=== PATIENT | female | born 1990 | race Caucasian/White ===

== ENCOUNTER → 2023-05-09 10:40 | Outpatient (CLI) | payer BC, SELFPAY ==
[2023-05-09 11:44] LABS: Add Manual Diff / Slide Review NO; Basophils Absolute Auto 0 /uL (0-100); Basophils Percent Auto 0.5 % (0-2); Eosinophils Absolute Auto 200 /uL (0-450); Eosinophils Percent Auto 3.1 % (2-4); Hematocrit 43.7 % (36-46); Hemoglobin 14.9 g/dL (12.0-16.0); Lymphocytes Absolute Auto 1700 /uL (1100-4500); Lymphocytes Percent Auto 31.4 % (25-40); Mean Corpuscular HGB Conc 34.2 % (30-36); Mean Corpuscular Hemoglobin 32.4 PG (26-34); Monocytes Absolute Auto 400 /uL (0-900); Neutrophils Absolute Auto 3100 /uL (1500-7000); Platelet Count 253 X10^3/uL (150-400); Red Blood Cell Count 4.61 X10^6/uL (4.0-5.2); Red Cell Distribution Width 12.8 % (11.6-14.8); White Blood Cell Count 5.4 X10^3/uL (4.5-11.0)
[2023-05-09 12:15] LABS: Alanine Aminotransferase 20 IU/L (<35); Albumin 4.5 g/dL (3.5-5.0); Albumin Globulin Ratio 1.5 (1.0-2.8); Alkaline Phosphatase 40 U/L (38-126); Aspartate Aminotransferase 25 IU/L (14-36); BUN Creatinine Ratio 13.9 (6-22); Bilirubin Total 0.8 mg/dL (0.2-1.3); Blood Urea Nitrogen 11 mg/dL (7-17); Calcium 9.4 mg/dL (8.4-10.2); Carbon Dioxide 21 mmol/L (22-32); Chloride 106 mmol/L (98-107); Estimated Glomerular Filt Rate > 60 mL/min (>60); Globulin 3.1 g/dL (1.7-4.1); Glucose 93 mg/dL (70-100); HEMOLYSIS < 15 (0-50); Potassium 3.8 mmol/L (3.4-5.1); Sodium 136 mmol/L (137-145); Total Protein 7.6 g/dL (6.3-8.2)
== END ==
PROVIDERS: PCP Family Medicine; Referring Provider Family Medicine; Visit Provider Family Medicine
DX: F41.9 Anxiety disorder, unspecified (principal); T78.40XA Allergy, unspecified, initial encounter; G43.909 Migraine, unspecified, not intractable, without status migrainosus
CPT/HCPCS: 36415; 80053; 85025

== ENCOUNTER → 2024-04-16 09:50 | Outpatient (CLI) | payer BC, SELFPAY | LOC: CAR 09:54 | PROVIDERS: PCP Family Medicine; Referring Provider Family Medicine; Visit Provider Family Medicine | DX: R00.1 Bradycardia, unspecified (principal) | CPT/HCPCS: 93246 ==

== ENCOUNTER → 2024-04-23 10:03 | Outpatient (CLI) | payer BC, SELFPAY ==
[2024-04-23 11:00] LABS: Add Manual Diff / Slide Review NO; Basophils Absolute Auto 0 /uL (0-100); Basophils Percent Auto 0.6 % (0-2); Eosinophils Absolute Auto 300 /uL (0-450); Eosinophils Percent Auto 6.5 % (2-4); Hematocrit 43.3 % (36-46); Hemoglobin 14.7 g/dL (12.0-16.0); Lymphocytes Absolute Auto 1700 /uL (1100-4500); Lymphocytes Percent Auto 33.8 % (25-40); Mean Corpuscular HGB Conc 33.9 % (30-36); Mean Corpuscular Hemoglobin 32.4 PG (26-34); Mean Corpuscular Volume 95.4 fL (80-100); Monocytes Absolute Auto 400 /uL (0-900); Monocytes Percent Auto 7.9 % (3-14); Neutrophils Absolute Auto 2600 /uL (1500-7000); Neutrophils Percent Auto 51.2 % (50-75); Platelet Count 288 X10^3/uL (150-400); Red Blood Cell Count 4.54 X10^6/uL (4.0-5.2); Red Cell Distribution Width 12.9 % (11.6-14.8)
[2024-04-23 11:20] LABS: HEMOLYSIS < 15 (0-50); Iron 122 ug/dL (37-170)
[2024-04-23 11:24] LABS: Alanine Aminotransferase 23 IU/L (<35); Albumin 4.5 g/dL (3.5-5.0); Albumin Globulin Ratio 1.7 (1.0-2.8); Alkaline Phosphatase 45 U/L (38-126); Aspartate Aminotransferase 29 IU/L (14-36); BUN Creatinine Ratio 13.4 (6-22); Bilirubin Total 0.6 mg/dL (0.2-1.3); Blood Urea Nitrogen 11 mg/dL (7-17); Calcium 9.2 mg/dL (8.4-10.2); Carbon Dioxide 24 mmol/L (22-32); Chloride 105 mmol/L (98-107); Cholesterol 189 mg/dL (140-199); Estimated Glomerular Filt Rate > 60 mL/min (>60); Globulin 2.7 g/dL (1.7-4.1); Glucose 91 mg/dL (70-100); HDL Cholesterol 68 mg/dL (40-60); HEMOLYSIS < 15 (0-50); LDL Cholesterol Calculated 105 mg/dL (<100); Potassium 4.1 mmol/L (3.4-5.1); Sodium 136 mmol/L (137-145); Total Protein 7.2 g/dL (6.3-8.2); Triglycerides 81 mg/dL (35-150)
[2024-04-23 11:31] LABS: Percent Iron Saturation 49 % (15-50); Total Iron Binding Capacity 250 ug/dL (265-497); Transferrin 229 mg/dL (206-381)
[2024-04-23 11:40] LABS: Vitamin D 25 Hydroxy (D3) 77.8 ng/mL (30.0-100.0)
[2024-04-23 12:00] LABS: Ferritin 29 ng/mL (6-137)
[2024-04-23 12:14] LABS: Vitamin B12 856 pg/mL (239-931)
== END ==
PROVIDERS: PCP Family Medicine; Referring Provider Family Medicine; Visit Provider Family Medicine
DX: R00.1 Bradycardia, unspecified (principal); R53.83 Other fatigue; Z78.9 Other specified health status; Z86.39 Personal history of other endocrine, nutritional and metabolic disease; F32.A Depression, unspecified
CPT/HCPCS: 36415; 80053; 80061; 82306; 82607; 82728; 83540; 83550; 84443; 85025

== ENCOUNTER → 2024-09-24 09:29 | Outpatient (CLI) | payer SELFPAY ==
[2024-09-24 10:27] LABS: Add Manual Diff / Slide Review NO; Basophils Absolute Auto 0 /uL (0-100); Basophils Percent Auto 0.4 % (0-2); Eosinophils Absolute Auto 900 /uL (0-450); Hematocrit 43.1 % (36-46); Hemoglobin 14.8 g/dL (12.0-16.0); Lymphocytes Absolute Auto 1300 /uL (1100-4500); Lymphocytes Percent Auto 15.2 % (25-40); Mean Corpuscular HGB Conc 34.4 % (30-36); Mean Corpuscular Hemoglobin 32.9 PG (26-34); Mean Corpuscular Volume 95.7 fL (80-100); Monocytes Absolute Auto 500 /uL (0-900); Monocytes Percent Auto 5.4 % (3-14); Neutrophils Absolute Auto 5700 /uL (1500-7000); Platelet Count 259 X10^3/uL (150-400); Red Cell Distribution Width 13.1 % (11.6-14.8); White Blood Cell Count 8.5 X10^3/uL (4.5-11.0)
[2024-09-24 10:57] LABS: Alanine Aminotransferase 51 IU/L (<35); Albumin 4.3 g/dL (3.5-5.0); Albumin Globulin Ratio 1.8 (1.0-2.8); Alkaline Phosphatase 51 U/L (38-126); Aspartate Aminotransferase 96 IU/L (14-36); BUN Creatinine Ratio 11.5 (6-22); Bilirubin Total 0.7 mg/dL (0.2-1.3); Blood Urea Nitrogen 9 mg/dL (7-17); Calcium 9.7 mg/dL (8.4-10.2); Carbon Dioxide 25 mmol/L (22-32); Chloride 105 mmol/L (98-107); Estimated Glomerular Filt Rate > 60 mL/min (>60); Globulin 2.4 g/dL (1.7-4.1); Glucose 104 mg/dL (70-99); HEMOLYSIS < 15 (0-50); Potassium 4.8 mmol/L (3.4-5.1); Sodium 137 mmol/L (137-145); Total Protein 6.7 g/dL (6.3-8.2)
== END ==
LOC: LAB 09:33
PROVIDERS: Chiropractor; PCP Family Medicine; Referring Provider Registered Nurse; Visit Provider Registered Nurse
DX: R10.11 Right upper quadrant pain (principal)
CPT/HCPCS: 36415; 80053; 85025

== ENCOUNTER 2024-09-24 21:14 | Emergency (ER) | payer BC, SELFPAY ==
[2024-09-24 21:23] VITALS: BP 107/62; PULSE 65; RESP 18; TEMP 37.1; O2SAT 98; BMI 20.2
--- NOTE | 2024-09-24 22:06 | ED_ITS ---
HPI - Abdominal Pain General Chief Complaint: Abdominal Pain Stated Complaint: Possible gallbLadder Pain Time Seen by Provider: 09/24/24 22:05 Source: patient Mode of arrival: Ambulatory History of Present Illness HPI narrative: 34-year-old female with past medical history of asthma, coming into the ED from home for evaluation of epigastric pain nausea vomiting ongoing persistent for the past 6 days, she states that started after she was eating, has had intermittent nausea and vomiting since then, did go to walk-in clinic was instructed to come into the ED for further evaluation treatment. Related Data Home Medications Medication Instructions Recorded Confirmed cholecalciferol (vitamin D3) 10 10 mcg PO DAILY 05/09/23 09/24/24 mcg (400 unit) capsule fexofenadine 180 mg tablet 180 mg PO DAILY 05/09/23 09/24/24 (Allergy Relief (fexofenadine)) fish, borage, flaxseed oils-omega 1 cap PO DAILY 05/09/23 09/24/24 3,6,9 cb #1 400 mg-400 mg-400 mg cap (Triple [place] 3-6-9) zonisamide 25 mg capsule 50 mg PO BID 04/04/24 09/24/24 Previous Rx's Medication Instructions Recorded epinephrine 0.3 mg/0.3 mL 0.3 mg (0.3 mL) IM ONCE #2 ea 05/09/23 injection, auto-injector ubrogepant 100 mg tablet (Ubrelvy) 100 mg PO ONCE #30 tabs 02/25/24 fluoxetine 10 mg capsule See Rx Instructions .Route 08/04/24 .COMPLEX #90 caps albuterol sulfate 90 mcg/actuation 1 inh inhalation .COMPLEX #8.5 09/08/24 aerosol inhaler grams pantoprazole 40 mg tablet,delayed 40 mg PO DAILY 1 week #30 tabs 09/24/24 release (Protonix) Allergies Allergy/AdvReac Type Severity Reaction Status Date / Time No Known Drug Allergies Allergy Verified 09/24/24 09:21 Review of Systems Review of Systems Narrative: General: Denies fever, chills, weight loss HEENT: Denies headache, eye drainage, eye irritation, head trauma, sore throat, voice change Cardiovascular: Denies any chest pain, palpitations, tachycardia Respiratory: Denies any shortness of breath, cough, wheeze, stridor GI/: Positive epigastric pain, denies nausea, vomiting, diarrhea, bright red blood per rectum, melanotic stools, urinary frequency, urinary retention, dysuria, hematuria MSK: Denies any joint pain, muscle pains, swelling Skin: Denies any rashes, lesions, discoloration Neuro: Denies any headache, lightheadedness, dizziness, fainting, weakness Psych: Denies SI/HI Patient History Medical History (Updated 09/24/24 @ 23:36 by Davy Lui DO) Exercise induced anaphylaxis (~2007) Depression (~2003) Headache (~1993) Chicken pox (~1995) Ovarian cyst (~2011) Orthostatic syncope (~2013) Essential tremor (~2021) Anxiety (~2003) Asthma (~2022) Allergies Migraine headache (~2000) Surgical History (Updated 05/13/23 @ 21:32 by Varsha Navarro) Anesthesia H/O ovarian cystectomy (~03/2015) Family History (Updated 05/13/23 @ 21:37 by Varsha Navarro) Grandfather Cancer Grandmother Dementia Father Hyperlipidemia Mental health problem Mother Hypertension Hyperlipidemia Sister Mental health problem Grandfather Skin cancer Prostate cancer History of heart disease Hyperlipidemia Hypertension Grandmother Hypertension Mental health problem Aunt Multiple sclerosis Social History marital status: number of children: 2 Previous occupational history: PT Smoking Status: Never smoker Smoking Status: Never smoker Exam Narrative Exam Narrative: General: Cooperative, well-developed, not in acute distress HEENT: Normocephalic, atraumatic, PERRLA, normal sclera, eyelids normal Neck: Active full range of motion, atraumatic Chest: Normal to inspection, negative crepitus, no overlying erythema ecchymosis Respiratory: Normal respiratory effort, not in acute respiratory distress, clear to auscultation bilaterally negative cough, wheeze, tachypnea, rhonchi, rales Cardiology: Regular rate rhythm negative gallop, murmur, rubs GI/: Mild tenderness to palpation of the epigastric region, negative Salazar's sign soft, non rigid, normal to inspection, exam deferred MSK: Full active range of motion in all 4 extremities, atraumatic, no tenderness to palpation of any bony prominences Skin: No rashes or lesions noted Neuro: Alert awake oriented x3, moves all 4 extremities spontaneously, cranial nerves intact, able to answer all questions appropriately follows commands appropriately Psych: Cooperative, negative suicidal or homicidal ideations Initial Vital Signs Initial Vital Signs: Vital Signs Temperature 98.8 F 09/24/24 21:23 Pulse Rate 65 09/24/24 21:23 Respiratory Rate 18 09/24/24 21:23 Blood Pressure 107/62 09/24/24 21:23 Pulse Oximetry 98 09/24/24 21:23 Oxygen Delivery Method Room Air 09/24/24 21:23 Course Orders Ordered: ED Orders 09/24/24 22:06 EKG-12 Lead Stat 09/24/24 22:07 CT abdomen pelvis w con Stat 09/24/24 22:15 Complete Blood Count AUTO DIFF Stat Comprehensive Metabolic Panel Stat HCG Quantitative /Beta subunit Stat Lactate (Lactic Acid) Stat Lipase Stat MAG [Magnesium] Stat Troponin & CK Cardiac Panel Stat Discontinued Medications Famotidine (Famotidine 20 Mg/2 Ml Vial) 20 mg IV NOW ONE Stop: 09/24/24 22:07 Last Admin: 09/24/24 22:24 Dose: 20 mg Documented By: MARCY Sodium Chloride (Normal Saline 0.9%) 1,000 mls @ 1,000 mls/hr IV BOLUS ONE Stop: 09/24/24 23:05 Last Infusion: 09/24/24 23:26 Dose: Infused Documented By: Admin: 09/24/24 22:24 Dose: 1,000 mls/hr Documented By: MARCY Vital Signs Vital signs: Vital Signs - 8 hr 09/24/24 21:23 09/24/24 22:28 09/24/24 22:28 Temperature 98.8 F Pulse Rate 65 59 L Respiratory Rate 18 Blood Pressure 107/62 102/56 L Pulse Oximetry 98 98 Oxygen Delivery Method Room Air 09/24/24 22:30 09/24/24 22:30 09/24/24 23:00 Temperature Pulse Rate 62 61 Respiratory Rate Blood Pressure 100/55 L Pulse Oximetry 98 100 Oxygen Delivery Method 09/24/24 23:23 09/24/24 23:23 Temperature Pulse Rate 65 Respiratory Rate 14 Blood Pressure 103/57 L Pulse Oximetry 100 Oxygen Delivery Method Room Air MDM - Abdominal Pain Differential Diagnosis Differential diagnosis: Likely other (Cholecystitis, cholelithiasis, ACS, pneumonia, electrolyte abnormality) Lab Data 09/24/24 22:15 09/24/24 22:15 Labs: Lab Results 09/24/24 Range/Units 22:15 WBC 12.9 H D (4.5-11.0) X10^3/uL RBC 4.22 (4.0-5.2) X10^6/uL Hgb 13.7 (12.0-16.0) g/dL Hct 40.6 (36-46) % MCV 96.1 (80-100) fL MCH 32.5 (26-34) PG MCHC 33.8 (30-36) % RDW 13.1 (11.6-14.8) % Plt Count 234 (150-400) X10^3/uL Neut % (Auto) 78.1 H (50-75) % Lymph % (Auto) 10.5 L (25-40) % [place] % (Auto) 4.8 (3-14) % Eos % (Auto) 6.4 H (2-4) % Baso % (Auto) 0.2 (0-2) % Neut # (Auto) 93522 H (9146-0366) /uL Lymph # (Auto) 1400 (9445-9490) /uL [place] # (Auto) 600 (0-900) /uL Eos # (Auto) 800 H (0-450) /uL Baso # (Auto) 0 (0-100) /uL Sodium 137 (137-145) mmol/L Potassium 3.7 (3.4-5.1) mmol/L Chloride 105 (98-107) mmol/L Carbon Dioxide 26 (22-32) mmol/L BUN 14 (7-17) mg/dL Creatinine 0.68 (0.52-1.04) mg/dL Estimated GFR > 60 (>60) mL/min BUN/Creatinine Ratio 20.6 (6-22) Glucose 132 H (70-99) mg/dL Lactate 1.6 (0.7-2.1) mmol/L Calcium 9.2 (8.4-10.2) mg/dL Magnesium 1.8 (1.6-2.3) mg/dL Total Bilirubin 0.4 (0.2-1.3) mg/dL AST 64 H (14-36) IU/L ALT 43 H (<35) IU/L Alkaline Phosphatase 38 (38-126) U/L Total Creatine Kinase 373 H (30-135) U/L Troponin I < 0.012 (0.01-0.034) ng/mL Total Protein 5.9 L (6.3-8.2) g/dL Albumin 3.7 (3.5-5.0) g/dL Globulin 2.2 (1.7-4.1) g/dL Albumin/Globulin Ratio 1.7 (1.0-2.8) Lipase 85 (23-300) U/L HCG, Quant < 2.39 mIU/mL Point of care testing: Point of Care Testing Test Results Negative Urine Dip Bedside Urine Glucose Negative Bedside Urine Bilirubin - Negative Bedside Urine Ketone - Negative Urine Specific [place] 1.015 Bedside Urine Occult Blood - Negative Bedside Urine pH 6 Bedside Urine Protein - Negative Bedside Urine Urobilinogen - Negative Bedside Urine Nitrite - Negative Bedside Urine Leukocytes - Negative Esterase Imaging Data CT scan - abdomen/pelvis: Radiologist's Impression: [address] [address] [address] Scan Report Signed Patient: Enrico Smith MR#: [id number] : 1990 Acct:[id number] Age/Sex: 34 / F Date of Service: 09/24/24 Loc: ED Accession Number: [id number] Procedure: CT abdomen pelvis w con Ordering Provider: Davy Lui D.O. PROCEDURE: CT ABDOMEN PELVIS W CON INDICATIONS: epigastric pain TECHNIQUE: After the administration of intravenous contrast, axial sections acquired from the lung bases to the pubic symphysis. Coronal and sagittal reformats were performed. For radiation dose reduction, the following was used: automated exposure control, adjustment of mA and/or kV according to patient size. COMPARISON: None. FINDINGS: Image quality: Diagnostic. Lower Chest: No significant findings. ABDOMEN: Liver: No solid mass. Gallbladder: No radiopaque gallstones or wall thickening. Biliary ducts: No biliary dilation. Pancreas: No ductal dilation. Spleen: Size is within normal limits. Adrenal Glands: No adrenal nodules. Kidneys and Ureters: No hydronephrosis. No solid mass. No complex renal cystic lesion which requires follow up. Stomach and Bowel: There is diffuse gastric wall thickening concerning for infectious inflammatory gastritis. No small bowel or colon wall thickening. [id number]-[id number] fecal stasis throughout the colon is seen. No evidence of acute appendicitis. No abscess collection. Peritoneum: No abnormal intraperitoneal fluid. No free air. Ventral Wall: No significant ventral hernia. Abdominal Nodes: No retroperitoneal or mesenteric adenopathy by size criteria. Vessels: Aorta and inferior vena cava are normal in size. PELVIS: Pelvic Organs: Unremarkable. Bladder: No bladder wall thickening, accounting for underdistention. Pelvic Nodes: No enlarged lymph nodes. Miscellaneous: No inguinal hernias are seen. Bones: No aggressive osseous abnormality. IMPRESSION: 1. Finding is suggestive of infectious inflammatory gastritis with diffuse gastric wall thickening. 2. No bowel obstruction. No small bowel or colon wall thickening. No free fluid or free air. No abscess collection. Oite-[id number]-uxqofmic constipation. 3. Rest of the exam is unremarkable. ECG Data Interpretation: EKG interpreted by ED physician sinus 62 beats per minute QTC [address] changes no STEMI MDM Narrative Medical decision making narrative: 34-year-old female with past medical history of migraines, asthma, presenting for epigastric pain ongoing persistent for the past 6 days, states that it started after eating fatty foods, she states that the symptoms do get worse whenever she eats something fatty, did eat something for dinner few hours ago, she states that she did go to the walk-in clinic and was told to come into the ED for further evaluation treatment. On exam patient with mild epigastric tenderness to palpation but negative Salazar's sign, patient EKG nonischemic in nature, abdominal CT urinalysis lab work was performed in the emergency department. Urinalysis not consistent with acute urinary tract infection, patient had normalization of liver functions during repeat here in the emergency department, previously AST 96 now 64, ALT 51 now 43, troponin negative, patient does have mild leukocytosis of 12 0.9 most likely reactive given patient with nausea and vomiting, CT scan showing gastritis, patient will be discharged home with PPI and instructed to follow up with primary care as well as GI in outpatient setting she is well-appearing nontoxic repeat abdominal exam soft nontender non peritoneal nature strict return precautions given verbalized understanding of this and agrees to being discharged home with outpatient follow up Discharge Plan Departure Patient Disposition: Home Clinical Impression: Gastritis Instructions: DI for Gastritis Activity Restrictions/Additional Instructions: Please follow up with your primary care doctor and GI in outpatient setting Please read the discharge instructions sheet carefully and bring all papers to all doctor follow-up visits, as it may contain information that your doctor may want to see. Disease processes change and evolve, if your symptoms worsen or if you develop any new symptoms that are concerning to you please return for evaluation. Your evaluation today does not show any evidence of any life- threatening/serious illnesses requiring admission to the hospital or surgery. Please follow-up with your doctor for re-evaluation in approximately 1 day. Seek immediate medical attention for any worrisome symptoms. *If you do not have a primary care provider please contact the [facility] Resource line at [phone]. They will ask some questions about your medical history and help get you set up with a doctor in the community. Prescriptions: New pantoprazole [Protonix] 40 mg tablet,delayed release (DR/EC) 40 mg PO DAILY 7 Days Qty: 30 0RF No Action zonisamide 25 mg capsule 50 mg PO BID fish,bora,flax oils-om3,6,[id number] [Triple [place] 3-6-9] 400-400-400 mg capsule 1 cap PO DAILY cholecalciferol (vitamin D3) 10 mcg (400 unit) capsule 10 mcg PO DAILY fexofenadine [Allergy Relief (fexofenadine)] 180 mg tablet 180 mg PO DAILY epinephrine 0.3 mg/0.3 mL auto-injector 0.3 mg IM ONCE Qty: 2 2RF Rx Instructions: as a single dose; may repeat once Ubrelvy 100 mg tablet 100 mg PO ONCE Qty: 30 0RF Rx Instructions: as a single dose; may repeat once in >=2 hours after first dose if needed fluoxetine 10 mg capsule See Rx Instructions .ROUTE .COMPLEX Qty: 90 3RF Dose Instruction: TAKE ONE CAPSULE BY MOUTH ONCE DAILY Rx Instructions: TAKE ONE CAPSULE BY MOUTH ONCE DAILY albuterol sulfate 90 mcg/actuation HFA aerosol inhaler 1 inh inhalation .COMPLEX Qty: 8.5 3RF Rx Instructions: As needed every 4-6 hours for shortness of breath Referrals: Ilya Worrell MD [Non-Staff] - (GI referral for gastritis) Swati Goodrich MD [Primary Care Provider] - Stand Alone Forms: Patient Portal/API/Survey
--- NOTE | 2024-09-24 22:17 | EKG_ITS ---
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
[2024-09-24 22:23] LABS: Add Manual Diff / Slide Review NO; Basophils Absolute Auto 0 /uL (0-100); Basophils Percent Auto 0.2 % (0-2); Eosinophils Absolute Auto 800 /uL (0-450); Eosinophils Percent Auto 6.4 % (2-4); Hematocrit 40.6 % (36-46); Hemoglobin 13.7 g/dL (12.0-16.0); Lymphocytes Absolute Auto 1400 /uL (1100-4500); Lymphocytes Percent Auto 10.5 % (25-40); Mean Corpuscular HGB Conc 33.8 % (30-36); Mean Corpuscular Hemoglobin 32.5 PG (26-34); Mean Corpuscular Volume 96.1 fL (80-100); Monocytes Absolute Auto 600 /uL (0-900); Monocytes Percent Auto 4.8 % (3-14); Neutrophils Absolute Auto 10100 /uL (1500-7000); Neutrophils Percent Auto 78.1 % (50-75); Platelet Count 234 X10^3/uL (150-400); Red Blood Cell Count 4.22 X10^6/uL (4.0-5.2); Red Cell Distribution Width 13.1 % (11.6-14.8); White Blood Cell Count 12.9 X10^3/uL (4.5-11.0)
[2024-09-24] MEDS: SODIUM CHLORIDE 0.9% 1,000 ML 1000 ML IV (22:24)
[2024-09-24] MEDS: FAMOTIDINE 20 MG/2 ML VIAL IV (22:24)
[2024-09-24 22:28] VITALS: BP 102/56; PULSE 59; O2SAT 98
[2024-09-24 22:30] VITALS: BP 100/55; PULSE 62; O2SAT 98
[2024-09-24 22:34] LABS: Creatine Kinase 373 U/L (30-135)
[2024-09-24 22:35] LABS: Lactate (Lactic Acid) 1.6 mmol/L (0.7-2.1)
[2024-09-24 22:40] LABS: Alanine Aminotransferase 43 IU/L (<35); Albumin 3.7 g/dL (3.5-5.0); Albumin Globulin Ratio 1.7 (1.0-2.8); Alkaline Phosphatase 38 U/L (38-126); Aspartate Aminotransferase 64 IU/L (14-36); BUN Creatinine Ratio 20.6 (6-22); Bilirubin Total 0.4 mg/dL (0.2-1.3); Blood Urea Nitrogen 14 mg/dL (7-17); Calcium 9.2 mg/dL (8.4-10.2); Carbon Dioxide 26 mmol/L (22-32); Chloride 105 mmol/L (98-107); Estimated Glomerular Filt Rate > 60 mL/min (>60); Globulin 2.2 g/dL (1.7-4.1); Glucose 132 mg/dL (70-99); HEMOLYSIS < 15 (0-50); Lipase 85 U/L (23-300); Magnesium 1.8 mg/dL (1.6-2.3); Potassium 3.7 mmol/L (3.4-5.1); Sodium 137 mmol/L (137-145); Total Protein 5.9 g/dL (6.3-8.2)
[2024-09-24 22:47] LABS: Troponin I < 0.012 ng/mL (0.01-0.034)
--- NOTE | 2024-09-24 22:49 | PC.NURSE ---
Pt ambulatory to imaging with sound technician supervisor
[2024-09-24 22:57] LABS: HCG Quantitative /Beta subunit < 2.39 mIU/mL
[2024-09-24 23:00] VITALS: PULSE 61; O2SAT 100
[2024-09-24 23:23] VITALS: BP 103/57; PULSE 65; RESP 14; O2SAT 100
[2024-09-24 23:30] VITALS: BP 103/58; PULSE 67; RESP 14; O2SAT 100
[2024-09-24] MEDS: MAG HYDROX/ALUMINUM/SIMETH SUS 20 ML, LIDOCAINE VISCOUS 2% 15 ML PO (23:39)
== END 2024-09-24 23:59 | disposition home or self-care (01) ==
PROVIDERS: Emergency Provider Student in an Organized Health Care Education/Training Program; PCP Family Medicine
DX: K29.70 Gastritis, unspecified, without bleeding (principal); R11.2 Nausea with vomiting, unspecified
CPT/HCPCS: 36415; 74177; 80053; 81003; 81025; 82550; 83605; 83690; 83735; 84484; 84702; 85025; 93005; 96361; 96374; 99284; Q9967

== ENCOUNTER → 2024-10-01 08:45 | Outpatient (CLI) | payer OTHER, SELFPAY ==
[2024-10-02 07:09] LABS: Interpretation Negative (Negative)
== END ==
PROVIDERS: PCP Family Medicine; Referring Provider Family Medicine; Visit Provider Family Medicine
DX: K29.70 Gastritis, unspecified, without bleeding (principal)
CPT/HCPCS: 83013